=== PATIENT | female | born 1940 | race African-American/Black ===

== ENCOUNTER 2016-05-04 23:44 | Inpatient (IN) | payer MEDICARE, MEDICAID ==
[~2016-05-04] VITALS: Ht 157.5 cm; Wt 54.9 kg
[2016-05-05] VITALS (8 sets, daily range): BP systolic 108–141; BP diastolic 63–76
[2016-05-05] MEDS ORDERED: Famotidine 20 MG/ 2ML VIAL IVP ONE (00:15)
[2016-05-05] MEDS ORDERED: Unasyn 3gm Inj ONE (00:50)
[2016-05-05 00:57] LABS: BASOPHILS % (AUTO) 1.7 % (0.0-2.0); EOSINOPHILS % (AUTO) 0.2 % (0.0-3.0); LYMPHOCYTES % (AUTO) 10.2 % (20.0-45.0); MEAN CORPUSCULAR HEMOGLOBIN 27.8 PG (27.0-31.0); MEAN CORPUSCULAR HGB CONC 32.6 G/DL (32.0-36.0); MEAN CORPUSCULAR VOLUME 85 FL (80-99); NEUTROPHILS % (AUTO) 80.8 % (45.0-75.0); PLATELET COUNT 171 K/UL (150-450); RED BLOOD COUNT 3.83 M/UL (4.20-5.40); WHITE BLOOD COUNT 10.3 K/UL (4.8-10.8)
[2016-05-05 01:09] LABS: INR 1.1 (0.9-1.1); PROTHROMBIN TIME 11.3 SEC (9.30-11.50)
[2016-05-05 01:17] LABS: ALANINE AMINOTRANSFERASE 36 U/L (3-33); ANION GAP 17 (5-15); ASPARTATE AMINO TRANSFERASE 36 U/L (5-40); CALCIUM 9.1 mg/dL (8.6-10.2); CARBON DIOXIDE 14 mEQ/L (20-30); CHLORIDE 106 mEQ/L (98-107); CREATININE 2.1 mg/dL (0.5-0.9); HEMOLYSIS 35; SODIUM 137 mEQ/L (135-145); TOTAL PROTEIN 6.8 g/dL (6.6-8.7)
[2016-05-05 01:28] LABS: POTASSIUM 6.2 mEQ/L (3.4-4.9)
[2016-05-05 01:37] LABS: TROPONIN I < 0.30 ng/mL (<=0.30)
[2016-05-05] MEDS ORDERED: Sodium Polystyrene Sulfonate 15gm Powder ORAL ONE ×2 (01:45→08:00)
[2016-05-05] MEDS ORDERED: Albuterol ud Inhalation HHN ONE (01:45)
[2016-05-05 02:02] LABS: APPEARANCE,URINE CLEAR; KETONES,URINE NEGATIVE (NEGATIVE); LEUKOCYTE ESTERASE ,URINE NEGATIVE (NEGATIVE); NITRITE,URINE NEGATIVE (NEGATIVE); PH,URINE 5 (4.5-8.0); PROTEIN,URINE 2+ (NEGATIVE); UROBILINOGEN,URINE NORMAL MG/DL (0.0-1.0)
[2016-05-05 02:11] LABS: BACTERIA,URINE FEW /HPF; SQUAMOUS EPITHELIAL CELL,UR FEW /LPF (NONE/OCC); WBC,URINE 0-2 /HPF (0 - 2)
[2016-05-05] MEDS: Ampicillin/Sulbactam Sod 3 GM in NS 110 ML IV SCH ×2 (02:16→06:00)
[2016-05-05 02:37] LABS: ABG BASE EXCESS -7.9; ABG PCO2 27.7 mmHg (35.0-45.0)
[2016-05-05 02:38] LABS: ABG ALLEN TEST POSITIVE
[2016-05-05] MEDS ORDERED: UNOBMED (03:16)
[2016-05-05] MEDS ORDERED: Morphine Sulfate 2mg/ml Inj IVP PRN (07:00)
[2016-05-05] MEDS ORDERED: Mylanta II UD 30ml ORAL PRN (07:00)
[2016-05-05] MEDS ORDERED: Miralax 17gm pkt ORAL PRN (07:00)
[2016-05-05] MEDS ORDERED: Zolpidem 5mg tab ORAL PRN (07:00)
[2016-05-05] MEDS ORDERED: DuoNeb 0.5-3(2.5)mg/3ml neb HHN PRN (07:00)
[2016-05-05] MEDS ORDERED: Calcium Gluconate 1gm/10ml vial IVP ONE (08:00)
--- NOTE | 2016-05-05 08:17 | Emergency Room Report ---
History of Present Illness General Chief Complaint: Dyspnea/Respdistress Source: Patient, Medical Record, EMS Present Illness HPI Patient is a 74-year-old female brought in by embolus after increased difficulty breathing. Patient had prior history of congestive heart failure as well as COPD and coronary artery disease. Patient had increased shortness of breath. She was noted to have a syncopal episode at home. Patient was previously scheduled to have a cardiac catheterization at [facility]. Patient had not been any fever. She had slight increase in cough. She had been started on supplemental oxygen by paramedics. Allergies: Coded Allergies: No Known Allergies (Unverified , 05/04/16) Patient History Past Medical History: see triage record Reviewed Nursing Documentation: PMH: Agreed, PSxH: Agreed Nursing Documentation-PMH Hx Cardiac Problems: Yes - stent, Left Chest Pacemaker Hx Hypertension: Yes Hx COPD: Yes Hx Diabetes: Yes Hx Cancer: No Hx Gastrointestinal Problems: No Hx Neurological Problems: Yes - spinal stenosis Hx Vertigo: Yes Review of Systems All Other Systems: negative except mentioned in HPI Physical Exam Vital Signs Date Time Temp Pulse Resp B/P Pulse Ox O2 Delivery O2 Flow Rate FiO2 05/04/16 23:52 98.8 94 18 127/80 86 Simple Mask 6.0 05/05/16 00:40 60 General Appearance: alert, GCS 15, moderate distress ENT: hearing grossly normal, normal pharynx Neck: supple Respiratory: accessory muscle use, rales Cardiovascular #1: normal inspection, normal peripheral pulses, regular rate, rhythm, no edema Gastrointestinal: normal inspection, normal bowel sounds, non tender, soft, no mass Musculoskeletal: normal inspection, back normal Neurologic: normal inspection, alert, oriented x3, 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 Because of complexity of patient' s case laboratory testing and imaging studies were ordered. The patient started on BiPAP. The patient was given IV Lasix. The patient was noted to have a prior history of cardiac ischemia. I EKG interpreted by me showed normal sinus rhythm with a rate of 95 liver inferior ischemic changes noted incomplete bundle-branch block. Dr. zayas was contacted for inpatient management. Labs Test 05/05/16 00:30 05/05/16 01:47 05/05/16 02:30 White Blood Count 10.3 K/UL (4.8-10.8) Red Blood Count 3.83 M/UL (4.20-5.40) Hemoglobin 10.6 G/DL (12.0-16.0) Hematocrit 32.6 % (37.0-47.0) Mean Corpuscular Volume 85 FL (80-99) Mean Corpuscular Hemoglobin 27.8 PG (27.0-31.0) Mean Corpuscular Hemoglobin Concent 32.6 G/DL (32.0-36.0) Red Cell Distribution Width 16.0 % (11.6-14.8) Platelet Count 171 K/UL (150-450) Mean Platelet Volume 8.0 FL (6.5-10.1) Neutrophils (%) (Auto) 80.8 % (45.0-75.0) Lymphocytes (%) (Auto) 10.2 % (20.0-45.0) Monocytes (%) (Auto) 7.0 % (1.0-10.0) Eosinophils (%) (Auto) 0.2 % (0.0-3.0) Basophils (%) (Auto) 1.7 % (0.0-2.0) Prothrombin Time 11.3 SEC (9.30-11.50) Prothromb Time International Ratio 1.1 (0.9-1.1) Activated Partial Thromboplast Time 27 SEC (23-33) Sodium Level 137 mEQ/L (135-145) Potassium Level 6.2 mEQ/L (3.4-4.9) Chloride Level 106 mEQ/L (98-107) Carbon Dioxide Level 14 mEQ/L (20-30) Anion Gap 17 (5-15) Blood Urea Nitrogen 46 mg/dL (7-23) Creatinine 2.1 mg/dL (0.5-0.9) Estimat Glomerular Filtration Rate mL/min (>60) Glucose Level 378 mg/dL (74-106) Lactic Acid Level 1.10 mmol/L (0.66-2.22) Calcium Level 9.1 mg/dL (8.6-10.2) Total Bilirubin 0.4 mg/dL (0.0-1.2) Aspartate Amino Transf (AST/SGOT) 36 U/L (5-40) Alanine Aminotransferase (ALT/SGPT) 36 U/L (3-33) Alkaline Phosphatase 197 U/L (35-104) Total Creatine Kinase 113 U/L (26-140) Troponin I < 0.30 ng/mL (<=0.30) Pro-B-Type Natriuretic Peptide 84385 pg/mL (0-450) Total Protein 6.8 g/dL (6.6-8.7) Albumin 3.4 g/dL (3.5-5.2) Globulin 3.4 g/dL Albumin/Globulin Ratio 1.0 (1.0-2.7) Urine Color Pale yellow Urine Appearance Clear Urine pH 5 (4.5-8.0) Urine Specific [place] 1.015 (1.005-1.035) Urine Protein 2+ (NEGATIVE) Urine Glucose (UA) 3+ (NEGATIVE) Urine Ketones Negative (NEGATIVE) Urine Occult Blood 2+ (NEGATIVE) Urine Nitrite Negative (NEGATIVE) Urine Bilirubin Negative (NEGATIVE) Urine Urobilinogen Normal MG/DL (0.0-1.0) Urine Leukocyte Esterase Negative (NEGATIVE) Urine RBC 2-4 /HPF (0 - 2) Urine WBC 0-2 /HPF (0 - 2) Urine Squamous Epithelial Cells Few /LPF (NONE/OCC) Urine Bacteria Few /HPF (NONE) Arterial Blood pH 7.379 (7.350-7.450) Arterial Blood Partial Pressure CO2 27.7 mmHg (35.0-45.0) Arterial Blood Partial Pressure O2 69.9 mmHg (75.0-100.0) Arterial Blood HCO3 16.0 mmol/L (22.0-26.0) Arterial Blood Oxygen Saturation 92.7 % (92.0-98.0) Arterial Blood Base Excess -7.9 Gibran Test Positive EKG Diagnostic Results Rate: normal Rhythm: NSR - 95 ST Segments: no acute changes Rhythm Strip Diag. Results EP Interpretation: yes Rhythm: NSR - 90s, no PVC's, no ectopy Chest X-Ray Diagnostic Results EP Interpretation: Yes Findings: no pneumothorax, other - Pulmonary edema, cardiomegaly right effusion Number of Views: 1 Last Vital Signs Date Time Temp Pulse Resp B/P Pulse Ox O2 Delivery O2 Flow Rate FiO2 1/31/17 05:08 95 20 96 Facial 50 05/05/16 04:00 97.7 141/76 05/04/16 23:52 6.0 Status: unchanged Disposition: ADMITTED INPATIENT Condition: Serious Referrals: NOT CHOSEN IPA/,REFERRING (PCP) Nathan Rodrigez May 05, 2016 08:17
[2016-05-05] MEDS ORDERED: Heparin 5000 units/ml inj SUBQ SCH (09:00)
[2016-05-05] MEDS ORDERED: Promethazine/Codeine 5ml UD ORAL PRN (10:45)
--- NOTE | 2016-05-05 10:53 | History and Physical ---
History of Present Illness General Date patient seen: May 05, 2016 Reason for Hospitalization: Dyspnea/Respdistress Present Illness HPI 74-year-old female with hx of COPD, on home O2, CAD, renal insufficiency brought in by paramedics after increased difficulty breathing. Patient had increased shortness of breath. She was noted to have a syncopal episode at home. she has also episodes of hemoptysis in the last few days with episodes of fever and chills. Allergies: Coded Allergies: No Known Allergies (Unverified , 05/04/16) Medication History Miscellaneous Medications Unable to Obtain Medications (Unable To Obtain Meds), (Reported) Patient History Healthcare decision maker Resuscitation status Advanced Directive on File Past Medical/Surgical History Past Medical/Surgical History: (1) CAD (coronary artery disease) (2) CHF (congestive heart failure) Review of Systems Constitutional: Reports: weakness Respiratory: Reports: shortness of breath, sputum Physical Exam General Appearance: WD/WN Lines, tubes and drains: peripheral HEENT: normocephalic, atraumatic Neck: non-tender, normal alignment Respiratory/Chest: chest wall non-tender, lungs clear Cardiovascular/Chest: normal peripheral pulses, normal rate Abdomen: normal bowel sounds, non tender Genitourinary/Rectal: normal genital exam, heme negative stool Extremities: normal range of motion Last 24 Hour Vital Signs Date Time Temp Pulse Resp B/P Pulse Ox O2 Delivery O2 Flow Rate FiO2 05/05/16 08:35 50 05/05/16 08:00 90 05/05/16 08:00 97.7 90 20 108/71 95 Venturi Mask 50 05/05/16 07:00 88 20 83 05/05/16 05:08 95 20 96 Facial 50 05/05/16 04:00 97.7 97 27 141/76 97 Bi-pap 50 05/05/16 04:00 50 05/05/16 03:49 89 05/05/16 03:30 98.6 89 25 125/72 100 70 05/05/16 03:28 98.5 92 28 120/69 99 Bi-pap 70 05/05/16 03:13 100 28 99 Facial 70 05/05/16 02:53 84 23 99 Bi-pap 05/05/16 02:43 70 05/05/16 02:30 98.5 92 22 120/69 100 Bi-pap 70 05/05/16 02:30 87 21 99 Bi-pap 60 05/05/16 01:00 98.6 83 30 118/66 100 60 05/05/16 01:00 60 05/05/16 01:00 83 26 Bi-pap 60 05/05/16 00:40 94 28 94 Facial 60 05/04/16 23:52 98.8 94 18 127/80 86 Simple Mask 6.0 Intake and Output 05/04/16 05/05/16 19:00 07:00 Output Total 0 ml Balance 0 ml Output Urine Total 0 ml # Voids 1 Laboratory Tests Test 05/05/16 00:30 05/05/16 01:47 05/05/16 02:30 White Blood Count 10.3 K/UL (4.8-10.8) Red Blood Count 3.83 M/UL (4.20-5.40) L Hemoglobin 10.6 G/DL (12.0-16.0) L Hematocrit 32.6 % (37.0-47.0) L Mean Corpuscular Volume 85 FL (80-99) Mean Corpuscular Hemoglobin 27.8 PG (27.0-31.0) Mean Corpuscular Hemoglobin Concent 32.6 G/DL (32.0-36.0) Red Cell Distribution Width 16.0 % (11.6-14.8) H Platelet Count 171 K/UL (150-450) Mean Platelet Volume 8.0 FL (6.5-10.1) Neutrophils (%) (Auto) 80.8 % (45.0-75.0) H Lymphocytes (%) (Auto) 10.2 % (20.0-45.0) L Monocytes (%) (Auto) 7.0 % (1.0-10.0) Eosinophils (%) (Auto) 0.2 % (0.0-3.0) Basophils (%) (Auto) 1.7 % (0.0-2.0) Prothrombin Time 11.3 SEC (9.30-11.50) Prothromb Time International Ratio 1.1 (0.9-1.1) Activated Partial Thromboplast Time 27 SEC (23-33) Sodium Level 137 mEQ/L (135-145) Potassium Level 6.2 mEQ/L (3.4-4.9) *H Chloride Level 106 mEQ/L (98-107) Carbon Dioxide Level 14 mEQ/L (20-30) L Anion Gap 17 (5-15) H Blood Urea Nitrogen 46 mg/dL (7-23) H Creatinine 2.1 mg/dL (0.5-0.9) H Estimat Glomerular Filtration Rate mL/min (>60) Glucose Level 378 mg/dL (74-106) H Lactic Acid Level 1.10 mmol/L (0.66-2.22) Calcium Level 9.1 mg/dL (8.6-10.2) Total Bilirubin 0.4 mg/dL (0.0-1.2) Aspartate Amino Transf (AST/SGOT) 36 U/L (5-40) Alanine Aminotransferase (ALT/SGPT) 36 U/L (3-33) H Alkaline Phosphatase 197 U/L (35-104) H Total Creatine Kinase 113 U/L (26-140) Creatine Kinase MB Pending Troponin I < 0.30 ng/mL (<=0.30) Pro-B-Type Natriuretic Peptide 66376 pg/mL (0-450) H Total Protein 6.8 g/dL (6.6-8.7) Albumin 3.4 g/dL (3.5-5.2) L Globulin 3.4 g/dL Albumin/Globulin Ratio 1.0 (1.0-2.7) Urine Color Pale yellow Urine Appearance Clear Urine pH 5 (4.5-8.0) Urine Specific [place] 1.015 (1.005-1.035) Urine Protein 2+ (NEGATIVE) H Urine Glucose (UA) 3+ (NEGATIVE) H Urine Ketones Negative (NEGATIVE) Urine Occult Blood 2+ (NEGATIVE) H Urine Nitrite Negative (NEGATIVE) Urine Bilirubin Negative (NEGATIVE) Urine Urobilinogen Normal MG/DL (0.0-1.0) Urine Leukocyte Esterase Negative (NEGATIVE) Urine RBC 2-4 /HPF (0 - 2) H Urine WBC 0-2 /HPF (0 - 2) Urine Squamous Epithelial Cells Few /LPF (NONE/OCC) Urine Bacteria Few /HPF (NONE) Arterial Blood pH 7.379 (7.350-7.450) Arterial Blood Partial Pressure CO2 27.7 mmHg (35.0-45.0) L Arterial Blood Partial Pressure O2 69.9 mmHg (75.0-100.0) L Arterial Blood HCO3 16.0 mmol/L (22.0-26.0) L Arterial Blood Oxygen Saturation 92.7 % (92.0-98.0) Arterial Blood Base Excess -7.9 Gibran Test Positive Height (Feet): 5 Height (Inches): 2.00 Weight (Pounds): 121 Medications Current Medications Medications (Trade) Dose Ordered Sig/[place] Route PRN Reason Start Time Stop Time Status Last Admin Dose Admin Acetaminophen (Tylenol) 650 mg Q4H PRN ORAL fever 05/05/16 07:00 06/04/16 06:59 Al Hydroxide/Mg Hydroxide (Mylanta II) 30 ml Q6H PRN ORAL dyspepsia 05/05/16 07:00 06/04/16 06:59 Albuterol/ Ipratropium (DuoNeb 0.5-3(2.5)mg/3ml) 3 ml Q6H PRN HHN dyspnea 05/05/16 07:00 05/10/16 06:59 Clonidine HCl (Catapres) 0.1 mg Q4H PRN ORAL sbp more than 160 05/05/16 07:00 06/04/16 06:59 Dextrose (Dextrose 50%) STAT PRN IV Hypoglycemia 05/05/16 07:00 06/04/16 06:59 Heparin Sodium (Porcine) (Heparin 5000 units/ml) 5,000 units EVERY 12 HOURS SUBQ 05/05/16 09:00 06/04/16 08:59 05/05/16 10:09 Insulin Aspart (NovoLOG) BEFORE MEALS AND HS SUBQ 05/05/16 11:30 06/04/16 11:29 Morphine Sulfate (Morphine Sulfate) 1 mg Q4H PRN IVP For Pain 05/05/16 07:00 05/12/16 06:59 Ondansetron HCl (Zofran) 4 mg Q6H PRN IVP Nausea & Vomiting 05/05/16 07:00 06/04/16 06:59 Polyethylene Glycol (Miralax) 17 gm HSPRN PRN ORAL Constipation 05/05/16 07:00 06/04/16 06:59 Zolpidem Tartrate (Ambien) 5 mg HSPRN PRN ORAL Insomnia 05/05/16 07:00 06/04/16 06:59 Assessment/Plan Problem List: (1) Respiratory distress ICD Codes: R06.00 - Dyspnea, unspecified SNOMED: 972394721 (2) Hemoptysis ICD Codes: R04.2 - Hemoptysis SNOMED: 83368322 (3) Pulmonary edema ICD Codes: J81.1 - Chronic pulmonary edema SNOMED: 32051891 (4) ICD (implantable cardioverter-defibrillator) in place ICD Codes: Z95.810 - Presence of automatic (implantable) cardiac defibrillator SNOMED: 906583382, 357415681 (5) On home O2 ICD Codes: Z99.81 - Dependence on supplemental oxygen SNOMED: 958102287265 (6) Emphysema of lung ICD Codes: J43.9 - Emphysema, unspecified SNOMED: 97673576 (7) CAD (coronary artery disease) ICD Codes: I25.10 - Atherosclerotic heart disease of [place] coronary artery without angina pectoris SNOMED: 81588246 Assessment/Plan check sputum IV antibioitcs CT chest echo cardiology evaluation renal evaluation titrate fio2 lasix prn dvt prophylaxis with ICD b/o hemoptysis SHELLEY BELCHER May 05, 2016 10:52
[2016-05-05 11:12] LABS: BASOPHILS % (AUTO) 0.8 % (0.0-2.0); EOSINOPHILS % (AUTO) 0.9 % (0.0-3.0); MEAN CORPUSCULAR HEMOGLOBIN 28.1 PG (27.0-31.0); MEAN CORPUSCULAR HGB CONC 33.4 G/DL (32.0-36.0); MEAN CORPUSCULAR VOLUME 84 FL (80-99); MEAN PLATELET VOLUME 8.1 FL (6.5-10.1); MONOCYTES % (AUTO) 3.3 % (1.0-10.0); PLATELET COUNT 165 K/UL (150-450); RED BLOOD COUNT 3.76 M/UL (4.20-5.40); RED CELL DISTRIBUTION WIDTH 16.4 % (11.6-14.8); WHITE BLOOD COUNT 8.2 K/UL (4.8-10.8)
[2016-05-05 11:27] LABS: ANION GAP 20 (5-15); CALCIUM 9.2 mg/dL (8.6-10.2); CARBON DIOXIDE 16 mEQ/L (20-30); CHLORIDE 105 mEQ/L (98-107); CREATININE 1.9 mg/dL (0.5-0.9); HEMOLYSIS 0; POTASSIUM 4.6 mEQ/L (3.4-4.9); SODIUM 141 mEQ/L (135-145)
[2016-05-05] MEDS: NovoLOG Insulin Flexpen SUBQ SCH ×3 (11:39→20:29)
--- NOTE | 2016-05-05 12:01 | Diagnostic Imaging Report ---
Indication: SOB Technique: One view of the chest Comparison: none Findings: There is interstitial and alveolar parenchymal disease bilaterally, right greater than left. There is bilateral pleural fluid, right greater than left. The heart is mildly enlarged. There is a left chest bifocal AICD.. There are median sternotomy sutures Impression: Cardiomegaly Bilateral pulmonary parenchymal disease, likely pulmonary edema although could represent pneumonia Small bilateral pleural effusions, right greater than left This agrees with the preliminary interpretation provided by the emergency room physician
--- NOTE | 2016-05-05 12:21 | Consultation ---
Consult Note Consult Note ID Dic# [id number] MARCELLO SEBASTIAN M.D. May 05, 2016 12:21
--- NOTE | 2016-05-05 14:28 | Cardiology Progress Note ---
Assessment/Plan Assessment/Plan cruscendo angina probable chf mr cad renl insuf iodine allergy dm copd hs hemoptysis? ecotirn avoid heparin in light of hemoptysis i am not sure how much blood she had and may be thsi was related to chf statin consider stanfer to k[place] for cath and pci as indicated need pretreatment fo iodine allergy repeat cardiac enzyms and ekg Objective Last 24 Hour Vital Signs Date Time Temp Pulse Resp B/P Pulse Ox O2 Delivery O2 Flow Rate FiO2 05/05/16 12:27 12.0 50 05/05/16 12:00 98.1 112 22 124/71 82 Venturi Mask 50 05/05/16 08:35 50 05/05/16 08:00 90 05/05/16 08:00 97.7 90 20 108/71 95 Venturi Mask 50 05/05/16 07:00 88 20 83 05/05/16 05:08 95 20 96 Facial 50 05/05/16 04:00 97.7 97 27 141/76 97 Bi-pap 50 05/05/16 04:00 50 05/05/16 03:49 89 05/05/16 03:30 98.6 89 25 125/72 100 70 05/05/16 03:28 98.5 92 28 120/69 99 Bi-pap 70 05/05/16 03:13 100 28 99 Facial 70 05/05/16 02:53 84 23 99 Bi-pap 05/05/16 02:43 70 05/05/16 02:30 98.5 92 22 120/69 100 Bi-pap 70 05/05/16 02:30 87 21 99 Bi-pap 60 05/05/16 01:00 98.6 83 30 118/66 100 60 05/05/16 01:00 60 05/05/16 01:00 83 26 Bi-pap 60 05/05/16 00:40 94 28 94 Facial 60 05/04/16 23:52 98.8 94 18 127/80 86 Simple Mask 6.0 Intake and Output 05/04/16 05/05/16 19:00 07:00 Output Total 0 ml Balance 0 ml Output Urine Total 0 ml # Voids 1 Laboratory Tests Test 05/05/16 00:30 05/05/16 01:47 05/05/16 02:30 05/05/16 10:50 White Blood Count 10.3 K/UL (4.8-10.8) 8.2 K/UL (4.8-10.8) Red Blood Count 3.83 M/UL (4.20-5.40) L 3.76 M/UL (4.20-5.40) L Hemoglobin 10.6 G/DL (12.0-16.0) L 10.6 G/DL (12.0-16.0) L Hematocrit 32.6 % (37.0-47.0) L 31.6 % (37.0-47.0) L Mean Corpuscular Volume 85 FL (80-99) 84 FL (80-99) Mean Corpuscular Hemoglobin 27.8 PG (27.0-31.0) 28.1 PG (27.0-31.0) Mean Corpuscular Hemoglobin Concent 32.6 G/DL (32.0-36.0) 33.4 G/DL (32.0-36.0) Red Cell Distribution Width 16.0 % (11.6-14.8) H 16.4 % (11.6-14.8) H Platelet Count 171 K/UL (150-450) 165 K/UL (150-450) Mean Platelet Volume 8.0 FL (6.5-10.1) 8.1 FL (6.5-10.1) Neutrophils (%) (Auto) 80.8 % (45.0-75.0) H 84.0 % (45.0-75.0) H Lymphocytes (%) (Auto) 10.2 % (20.0-45.0) L 11.0 % (20.0-45.0) L Monocytes (%) (Auto) 7.0 % (1.0-10.0) 3.3 % (1.0-10.0) Eosinophils (%) (Auto) 0.2 % (0.0-3.0) 0.9 % (0.0-3.0) Basophils (%) (Auto) 1.7 % (0.0-2.0) 0.8 % (0.0-2.0) Prothrombin Time 11.3 SEC (9.30-11.50) Prothromb Time International Ratio 1.1 (0.9-1.1) Activated Partial Thromboplast Time 27 SEC (23-33) Sodium Level 137 mEQ/L (135-145) 141 mEQ/L (135-145) Potassium Level 6.2 mEQ/L (3.4-4.9) *H 4.6 mEQ/L (3.4-4.9) Chloride Level 106 mEQ/L (98-107) 105 mEQ/L (98-107) Carbon Dioxide Level 14 mEQ/L (20-30) L 16 mEQ/L (20-30) L Anion Gap 17 (5-15) H 20 (5-15) H Blood Urea Nitrogen 46 mg/dL (7-23) H 46 mg/dL (7-23) H Creatinine 2.1 mg/dL (0.5-0.9) H 1.9 mg/dL (0.5-0.9) H Estimat Glomerular Filtration Rate mL/min (>60) mL/min (>60) Glucose Level 378 mg/dL (74-106) H 377 mg/dL (74-106) H Lactic Acid Level 1.10 mmol/L (0.66-2.22) Calcium Level 9.1 mg/dL (8.6-10.2) 9.2 mg/dL (8.6-10.2) Total Bilirubin 0.4 mg/dL (0.0-1.2) Aspartate Amino Transf (AST/SGOT) 36 U/L (5-40) Alanine Aminotransferase (ALT/SGPT) 36 U/L (3-33) H Alkaline Phosphatase 197 U/L (35-104) H Total Creatine Kinase 113 U/L (26-140) Creatine Kinase MB Pending Troponin I < 0.30 ng/mL (<=0.30) Pro-B-Type Natriuretic Peptide 34525 pg/mL (0-450) H Total Protein 6.8 g/dL (6.6-8.7) Albumin 3.4 g/dL (3.5-5.2) L Globulin 3.4 g/dL Albumin/Globulin Ratio 1.0 (1.0-2.7) Urine Color Pale yellow Urine Appearance Clear Urine pH 5 (4.5-8.0) Urine Specific [place] 1.015 (1.005-1.035) Urine Protein 2+ (NEGATIVE) H Urine Glucose (UA) 3+ (NEGATIVE) H Urine Ketones Negative (NEGATIVE) Urine Occult Blood 2+ (NEGATIVE) H Urine Nitrite Negative (NEGATIVE) Urine Bilirubin Negative (NEGATIVE) Urine Urobilinogen Normal MG/DL (0.0-1.0) Urine Leukocyte Esterase Negative (NEGATIVE) Urine RBC 2-4 /HPF (0 - 2) H Urine WBC 0-2 /HPF (0 - 2) Urine Squamous Epithelial Cells Few /LPF (NONE/OCC) Urine Bacteria Few /HPF (NONE) Arterial Blood pH 7.379 (7.350-7.450) Arterial Blood Partial Pressure CO2 27.7 mmHg (35.0-45.0) L Arterial Blood Partial Pressure O2 69.9 mmHg (75.0-100.0) L Arterial Blood HCO3 16.0 mmol/L (22.0-26.0) L Arterial Blood Oxygen Saturation 92.7 % (92.0-98.0) Arterial Blood Base Excess -7.9 Gibran Test Positive CANDY PRYOR May 05, 2016 14:28
[2016-05-05] MEDS ORDERED: Nitroglycerin 2% oint pkt TOPIC SCH (14:45)
[2016-05-05] MEDS ORDERED: Aspirin EC 81mg tab ORAL SCH (15:00)
[2016-05-05 17:08] LABS: TROPONIN I < 0.30 ng/mL (<=0.30)
--- NOTE | 2016-05-05 20:07 | Consultation ---
DATE OF CONSULTATION: INFECTIOUS DISEASE CONSULTATION CONSULTING PHYSICIAN: Willie Chan M.D. REFERRING PHYSICIAN: Simon Santoyo M.D. REASON FOR CONSULTATION: Evaluation of the patient for pneumonia, bronchitis and antibiotic management. HISTORY OF PRESENT ILLNESS: The patient is a 76-year-old female with multiple medical problems, as , who came to the hospital with chief complaint of cough that is productive for five days. The patient also noticed some blood mixed with the sputum. The patient has reported that in the past also when she gets bronchitis and cough is mixed with blood. Infectious Disease consultation has been requested for further evaluation of the patient's antibiotic management. PAST MEDICAL HISTORY: Significant for 1. stenosis. 2. History of pacemaker placement. 3. History of CHF. 4. Hypertension. 5. COPD. 6. Diabetes. MEDICATIONS: Levaquin. ALLERGIES: No known drug allergies. SOCIAL HISTORY: Significant for smoking. FAMILY HISTORY: Noncontributory. REVIEW OF SYSTEMS: General: The patient has history of weight loss in the last one year. No chills. Pulmonary: As mentioned above. Cardiovascular: No chest pain. No palpitation. Gastrointestinal/Abdomen: No nausea or vomiting. Genitourinary: No dysuria. Musculoskeletal: No pain in extremities. PHYSICAL EXAMINATION: VITAL SIGNS: Temperature 97.6 degrees, blood pressure 108/79, pulse 86, and respiratory rate 18. HEENT: Mild conjunctiva. No icterus. NECK: No lymphadenopathy. CHEST: Coarse breathing sounds. HEART: S1 and S2. ABDOMEN: Soft and nontender. EXTREMITIES: No cyanosis. NEUROLOGIC: Awake and alert. LABORATORY AND DIAGNOSTIC DATA: White blood cells 8, hemoglobin 10, and platelets 165,000. Urinalysis unremarkable. BUN 46 and creatinine 1.9. AST 36, ALT 36, and alkaline phosphatase of 197. A chest x-ray, bilateral pleural parenchymal disease, pleural edema versus pneumonia and small bilateral pleural effusion. ASSESSMENT: The patient is an 76-year-old female with multiple medical problems who was admitted to this medical center. The patient has cough and severe shortness of breath and some hemoptysis in the last five days. Chest x-ray shows evidence of pneumonia or pulmonary edema. Infectious Disease consultation requested for further evaluation of the patient. PLAN: 1. I will start the patient on Levaquin. 2. Monitor CBC. 3. Monitor BMP. 4. Monitor chest x-ray. 5. Monitor cultures (blood and sputum). Based on patient's clinical and laboratories, we will do further recommendation. Thank you, Dr. Santoyo, for allowing me to participate in the care of this patient. I will follow the patient with you during this hospitalization. Willie Chan M.D. DR: CHRISTELLE JOB#: [id number] CC:
[2016-05-05] MEDS: Nitroglycerin 2% oint pkt TOPIC SCH (20:30)
[2016-05-05] MEDS ORDERED: Furosemide 80mg tab ORAL SCH (21:00)
[2016-05-06] VITALS: BP 123/77
[2016-05-06 00:01] LABS: TROPONIN I < 0.30 ng/mL (<=0.30)
[2016-05-06] MEDS: Nitroglycerin 2% oint pkt TOPIC SCH (03:25)
[2016-05-06 04:00] VITALS: BP 131/82
[2016-05-06] MEDS ORDERED: Morphine Sulfate 2mg/ml Inj IVP PRN (06:00)
[2016-05-06] MEDS ORDERED: Mylanta II UD 30ml ORAL PRN (06:00)
[2016-05-06] MEDS ORDERED: Promethazine/Codeine 5ml UD ORAL PRN (06:00)
[2016-05-06] MEDS ORDERED: Zolpidem 5mg tab ORAL PRN (06:00)
[2016-05-06] MEDS ORDERED: Miralax 17gm pkt ORAL PRN (06:00)
[2016-05-06] MEDS ORDERED: DuoNeb 0.5-3(2.5)mg/3ml neb HHN PRN (06:00)
[2016-05-06] MEDS: NovoLOG Insulin Flexpen SUBQ SCH ×2 (07:11→12:20)
[2016-05-06 08:04] VITALS: BP 119/66
[2016-05-06 08:15] LABS: BASOPHILS % (AUTO) 0.7 % (0.0-2.0); EOSINOPHILS % (AUTO) 3.2 % (0.0-3.0); MEAN CORPUSCULAR HEMOGLOBIN 28.6 PG (27.0-31.0); MEAN CORPUSCULAR HGB CONC 34.3 G/DL (32.0-36.0); MEAN CORPUSCULAR VOLUME 84 FL (80-99); MEAN PLATELET VOLUME 8.1 FL (6.5-10.1); MONOCYTES % (AUTO) 7.4 % (1.0-10.0); NEUTROPHILS % (AUTO) 74.7 % (45.0-75.0); PLATELET COUNT 206 K/UL (150-450); RED CELL DISTRIBUTION WIDTH 16.3 % (11.6-14.8); WHITE BLOOD COUNT 6.8 K/UL (4.8-10.8)
[2016-05-06 08:33] LABS: ALANINE AMINOTRANSFERASE 54 U/L (3-33); ALBUMIN/GLOBULIN RATIO 1.3 (1.0-2.7); ANION GAP 20 (5-15); ASPARTATE AMINO TRANSFERASE 43 U/L (5-40); CALCIUM 9.2 mg/dL (8.6-10.2); CARBON DIOXIDE 19 mEQ/L (20-30); CHLORIDE 103 mEQ/L (98-107); CREATININE 1.9 mg/dL (0.5-0.9); HEMOLYSIS 6; POTASSIUM 3.7 mEQ/L (3.4-4.9); SODIUM 142 mEQ/L (135-145); TOTAL PROTEIN 6.6 g/dL (6.6-8.7)
[2016-05-06] MEDS ORDERED: Aspirin EC 81mg tab ORAL SCH (09:00)
[2016-05-06] MEDS ORDERED: Nitroglycerin 2% oint pkt TOPIC SCH (09:00)
[2016-05-06] MEDS ORDERED: Furosemide 80mg tab ORAL SCH (09:00)
[2016-05-06 09:25] LABS: MAGNESIUM 1.8 mg/dL (1.7-2.5)
--- NOTE | 2016-05-06 09:26 | Diagnostic Imaging Report ---
Clinical Indication: COUGH Technique: Spiral acquisitions obtained through the chest. No IV contrast utilized, the renal insufficiency. Multiplanar reconstructions generated. Total dose length product 497 mGycm. CTDIvol(s) 12 mGy Comparison: None Findings:There is dense consolidation and atelectasis of the inferior right lower lobe. Interstitial and alveolar opacities are seen involving much of the remainder the right lower lobe. Within most of the right upper lobe, there is mostly interstitial parenchymal disease diffusely, with some airspace involvement as well. The left upper lobe is clear. There is some compressive atelectasis at the left lung base. Medial opacity with air bronchograms may reflect atelectasis or scarring with cicatrization. There are bilateral pleural effusions, moderate on the right, small on the left. The heart is enlarged. No pericardial effusion. There is a left chest pacemaker. There are median sternotomy sutures. There is edema of the mediastinal fat. There are multiple nodules within the right thyroid lobe and thyroid isthmus, measuring up to 1 cm diameter. No mediastinal or hilar mass or adenopathy. Esophagus is unremarkable. The bones are unremarkable except for the sternotomy sutures. The main pulmonary artery is ectatic. There are fairly extensive coronary artery calcifications The included upper abdominal viscera are unremarkable. There is suggestion of fluid either within the pleural space or retroperitoneum posteromedial to the right hepatic lobe. Impression: Unusual interstitial and alveolar opacity involving the right upper lobe. Probably reflects acute infiltrate, although an unusual focal component of chronic fibrosis is also possible. Correlate with clinical findings Atelectasis and consolidation involving much of the right lower lobe, consistent with pneumonia Bilateral right greater left pleural effusions Ectatic main pulmonary artery, suggestive of but not diagnostic for pulmonary arterial hypertension Multiple thyroid nodules. Further evaluation with ultrasound should be considered if clinically indicated Cardiomegaly Pacemaker Nonspecific edema of the mediastinal fat, mild Suggestion of fluid in the peritoneal space or within the retroperitoneum adjacent to the posterior medial right hepatic lobe The CT scanner at [facility] is accredited by the [employer] and the scans are performed using protocols designed to limit radiation exposure to as low as reasonably achievable to attain images of sufficient resolution adequate for diagnostic evaluation.
[2016-05-06 09:32] LABS: TROPONIN I < 0.30 ng/mL (<=0.30)
--- NOTE | 2016-05-06 10:35 | Infectious Diseases Prog Note ---
Assessment/Plan Assessment/Plan A: The patient is a 76-year-old female with Pneumonia VS Bronchitis hemoptysis ( due to bronchitis and ) and cough improving chest x-ray : bilateral pleural parenchymal disease, pleural edema versus pneumonia and small bilateral pleural effusion PPM CHF HTN COPD Diabetes PLAN: Cont pt on Levaquin d# 2 / 5 Monitor CBC Monitor BMP. Monitor chest x-ray Monitor cultures (blood and sputum) Subjective Allergies: Coded Allergies: No Known Allergies (Unverified , 05/04/16) Objective Vital Signs Last 24 Hour Vital Signs Date Time Temp Pulse Resp B/P Pulse Ox O2 Delivery O2 Flow Rate FiO2 05/06/16 09:11 119/66 05/06/16 08:04 97.9 99 18 119/66 93 Nasal Cannula 2.0 05/06/16 08:00 92 05/06/16 07:19 94 20 91 Nasal Cannula 3.0 32 05/06/16 07:19 96 18 93 Nasal Cannula 3.0 32 05/06/16 04:00 96 05/06/16 04:00 98.6 96 18 131/82 96 Nasal Cannula 2.0 05/06/16 03:40 98 20 92 Nasal Cannula 3.0 32 05/06/16 03:30 94 20 90 Nasal Cannula 3.0 32 05/06/16 03:25 131/82 05/06/16 00:00 95 05/06/16 00:00 99.1 97 19 123/77 96 Nasal Cannula 2.0 05/05/16 23:30 93 20 94 Nasal Cannula 3.0 32 05/05/16 23:29 90 20 91 Nasal Cannula 3.0 32 05/05/16 20:30 111/65 05/05/16 20:09 99.3 93 18 111/65 91 Nasal Cannula 3.0 05/05/16 20:00 94 05/05/16 19:30 92 20 92 Nasal Cannula 3.0 32 05/05/16 19:30 94 20 92 Nasal Cannula 3.0 32 05/05/16 16:15 84 20 99 Venturi Mask 12.0 50 05/05/16 16:00 94 05/05/16 16:00 50 05/05/16 16:00 97.7 99 18 110/63 91 Nasal Cannula 3.0 05/05/16 15:27 85 20 98 Venturi Mask 12.0 50 05/05/16 14:55 124/71 05/05/16 12:27 12.0 50 05/05/16 12:00 98.1 112 22 124/71 82 Venturi Mask 50 Height (Feet): 5 Height (Inches): 2.00 Weight (Pounds): 121 Microbiology Date/Time Source Procedure Growth Status 05/05/16 00:41 Blood Blood Culture - Preliminary NO GROWTH AFTER 24 HOURS Resulted 05/05/16 00:30 Blood Blood Culture - Preliminary NO GROWTH AFTER 24 HOURS Resulted Laboratory Tests Test 05/05/16 10:50 05/05/16 15:00 05/05/16 22:30 05/06/16 06:30 White Blood Count 8.2 K/UL (4.8-10.8) 6.8 K/UL (4.8-10.8) Red Blood Count 3.76 M/UL (4.20-5.40) L 4.00 M/UL (4.20-5.40) L Hemoglobin 10.6 G/DL (12.0-16.0) L 11.5 G/DL (12.0-16.0) L Hematocrit 31.6 % (37.0-47.0) L 33.5 % (37.0-47.0) L Mean Corpuscular Volume 84 FL (80-99) 84 FL (80-99) Mean Corpuscular Hemoglobin 28.1 PG (27.0-31.0) 28.6 PG (27.0-31.0) Mean Corpuscular Hemoglobin Concent 33.4 G/DL (32.0-36.0) 34.3 G/DL (32.0-36.0) Red Cell Distribution Width 16.4 % (11.6-14.8) H 16.3 % (11.6-14.8) H Platelet Count 165 K/UL (150-450) 206 K/UL (150-450) Mean Platelet Volume 8.1 FL (6.5-10.1) 8.1 FL (6.5-10.1) Neutrophils (%) (Auto) 84.0 % (45.0-75.0) H 74.7 % (45.0-75.0) Lymphocytes (%) (Auto) 11.0 % (20.0-45.0) L 14.0 % (20.0-45.0) L Monocytes (%) (Auto) 3.3 % (1.0-10.0) 7.4 % (1.0-10.0) Eosinophils (%) (Auto) 0.9 % (0.0-3.0) 3.2 % (0.0-3.0) H Basophils (%) (Auto) 0.8 % (0.0-2.0) 0.7 % (0.0-2.0) Sodium Level 141 mEQ/L (135-145) 142 mEQ/L (135-145) Potassium Level 4.6 mEQ/L (3.4-4.9) 3.7 mEQ/L (3.4-4.9) Chloride Level 105 mEQ/L (98-107) 103 mEQ/L (98-107) Carbon Dioxide Level 16 mEQ/L (20-30) L 19 mEQ/L (20-30) L Anion Gap 20 (5-15) H 20 (5-15) H Blood Urea Nitrogen 46 mg/dL (7-23) H 42 mg/dL (7-23) H Creatinine 1.9 mg/dL (0.5-0.9) H 1.9 mg/dL (0.5-0.9) H Estimat Glomerular Filtration Rate mL/min (>60) mL/min (>60) Glucose Level 377 mg/dL (74-106) H 167 mg/dL (74-106) #H Calcium Level 9.2 mg/dL (8.6-10.2) 9.2 mg/dL (8.6-10.2) Troponin I < 0.30 ng/mL (<=0.30) < 0.30 ng/mL (<=0.30) < 0.30 ng/mL (<=0.30) Hemoglobin A1c Pending Magnesium Level 1.8 mg/dL (1.7-2.5) Total Bilirubin 0.6 mg/dL (0.0-1.2) Aspartate Amino Transf (AST/SGOT) 43 U/L (5-40) H Alanine Aminotransferase (ALT/SGPT) 54 U/L (3-33) H Alkaline Phosphatase 214 U/L (35-104) H Total Protein 6.6 g/dL (6.6-8.7) Albumin 3.8 g/dL (3.5-5.2) Globulin 2.8 g/dL Albumin/Globulin Ratio 1.3 (1.0-2.7) Triglycerides Level Pending Cholesterol Level Pending LDL Cholesterol Pending HDL Cholesterol Pending Cholesterol/HDL Ratio Pending Thyroid Stimulating Hormone (TSH) Pending Current Medications Medications (Trade) Dose Ordered Sig/Celeste Route PRN Reason Start Time Stop Time Status Last Admin Dose Admin Acetaminophen (Tylenol) 650 mg Q4H PRN ORAL fever 05/06/16 06:00 06/05/16 05:59 Al Hydroxide/Mg Hydroxide (Mylanta II) 30 ml Q6H PRN ORAL dyspepsia 05/06/16 06:00 06/05/16 05:59 Albuterol/ Ipratropium (DuoNeb 0.5-3(2.5)mg/3ml) 3 ml Q6H PRN HHN dyspnea 05/06/16 06:00 05/11/16 05:59 Aspirin (Ecotrin) 81 mg DAILY ORAL 05/06/16 09:00 06/05/16 08:59 05/06/16 09:10 Atorvastatin Calcium (Lipitor) 40 mg BEDTIME ORAL 05/06/16 21:00 06/05/16 20:59 Clonidine HCl (Catapres) 0.1 mg Q4H PRN ORAL sbp more than 160 05/06/16 06:00 06/05/16 05:59 Dextrose (Dextrose 50%) STAT PRN IV Hypoglycemia 05/06/16 06:00 06/05/16 05:59 Furosemide (Lasix) 80 mg EVERY 12 HOURS ORAL 05/06/16 09:00 06/05/16 08:59 05/06/16 09:11 Insulin Aspart (NovoLOG) BEFORE MEALS AND HS SUBQ 05/06/16 06:30 06/05/16 06:29 05/06/16 07:11 Levofloxacin (Levaquin) 100 ml @ 100 mls/hr Q48H IVPB 05/07/16 13:00 05/14/16 12:59 Morphine Sulfate (Morphine Sulfate) 1 mg Q4H PRN IVP For Pain 05/06/16 06:00 05/13/16 05:59 Nitroglycerin (Nitro-Bid) 1 inch Q6H TOPIC 05/06/16 09:00 06/05/16 08:59 05/06/16 09:11 Ondansetron HCl (Zofran) 4 mg Q6H PRN IVP Nausea & Vomiting 05/06/16 06:00 06/05/16 05:59 Polyethylene Glycol (Miralax) 17 gm HSPRN PRN ORAL Constipation 05/06/16 06:00 06/05/16 05:59 Promethazine HCl/ Codeine (Phenergan with Codeine) 5 ml Q4H PRN ORAL For Cough 05/06/16 06:00 06/05/16 05:59 Zolpidem Tartrate (Ambien) 5 mg HSPRN PRN ORAL Insomnia 05/06/16 06:00 06/05/16 05:59 MARCELLO SEBASTIAN M.D. May 06, 2016 10:35
[2016-05-06 11:44] VITALS: BP 126/65
--- NOTE | 2016-05-06 12:49 | Pulmonology Progress Note ---
Assessment/Plan Problems: (1) Respiratory distress (2) Hemoptysis (3) Pulmonary edema (4) ICD (implantable cardioverter-defibrillator) in place (5) On home O2 (6) Emphysema of lung (7) CAD (coronary artery disease) Assessment/Plan unusual infiltrate at RUL on CT ? etiology pt is stable to be transferred to [facility] for cardiac work up Subjective ROS Limited/Unobtainable: No Interval Events: doing better, no new complains Allergies: Coded Allergies: No Known Allergies (Unverified , 05/04/16) Objective Last 24 Hour Vital Signs Date Time Temp Pulse Resp B/P Pulse Ox O2 Delivery O2 Flow Rate FiO2 05/06/16 11:44 98.2 95 18 126/65 92 Nasal Cannula 2.0 05/06/16 10:30 94 16 92 Nasal Cannula 3.0 32 05/06/16 10:30 94 20 91 Nasal Cannula 3.0 32 05/06/16 09:11 119/66 05/06/16 08:04 97.9 99 18 119/66 93 Nasal Cannula 2.0 05/06/16 08:00 92 05/06/16 07:19 94 20 91 Nasal Cannula 3.0 32 05/06/16 07:19 96 18 93 Nasal Cannula 3.0 32 05/06/16 04:00 96 05/06/16 04:00 98.6 96 18 131/82 96 Nasal Cannula 2.0 05/06/16 03:40 98 20 92 Nasal Cannula 3.0 32 05/06/16 03:30 94 20 90 Nasal Cannula 3.0 32 05/06/16 03:25 131/82 05/06/16 00:00 95 05/06/16 00:00 99.1 97 19 123/77 96 Nasal Cannula 2.0 05/05/16 23:30 93 20 94 Nasal Cannula 3.0 32 05/05/16 23:29 90 20 91 Nasal Cannula 3.0 32 05/05/16 20:30 111/65 05/05/16 20:09 99.3 93 18 111/65 91 Nasal Cannula 3.0 05/05/16 20:00 94 05/05/16 19:30 92 20 92 Nasal Cannula 3.0 32 05/05/16 19:30 94 20 92 Nasal Cannula 3.0 32 05/05/16 16:15 84 20 99 Venturi Mask 12.0 50 05/05/16 16:00 94 05/05/16 16:00 50 05/05/16 16:00 97.7 99 18 110/63 91 Nasal Cannula 3.0 05/05/16 15:27 85 20 98 Venturi Mask 12.0 50 05/05/16 14:55 124/71 Intake and Output 05/05/16 05/06/16 19:00 07:00 Intake Total 650 ml 400 ml Balance 650 ml 400 ml Intake Oral 650 ml 400 ml # Voids 1 3 General Appearance: WD/WN HEENT: normocephalic, atraumatic Respiratory/Chest: chest wall non-tender, lungs clear Cardiovascular: normal peripheral pulses, normal rate Abdomen: normal bowel sounds, soft, non tender Genitourinary: normal external genitalia Skin: no lesions Neurologic/Psychiatric: gin operator II-XII grossly normal, abnormal gait Microbiology Date/Time Source Procedure Growth Status 05/05/16 00:41 Blood Blood Culture - Preliminary NO GROWTH AFTER 24 HOURS Resulted 05/05/16 00:30 Blood Blood Culture - Preliminary NO GROWTH AFTER 24 HOURS Resulted Laboratory Tests 05/05/16 15:00: Troponin I < 0.30 05/05/16 22:30: Troponin I < 0.30 05/06/16 06:30: Troponin I < 0.30, White Blood Count 6.8, Red Blood Count 4.00L, Hemoglobin 11.5L, Hematocrit 33.5L, Mean Corpuscular Volume 84, Mean Corpuscular Hemoglobin 28.6, Mean Corpuscular Hemoglobin Concent 34.3, Red Cell Distribution Width 16.3H, Platelet Count 206, Mean Platelet Volume 8.1, Neutrophils (%) (Auto) 74.7, Lymphocytes (%) (Auto) 14.0L, Monocytes (%) (Auto) 7.4, Eosinophils (%) (Auto) 3.2H, Basophils (%) (Auto) 0.7, Sodium Level 142, Potassium Level 3.7, Chloride Level 103, Carbon Dioxide Level 19L, Anion Gap 20H , Blood Urea Nitrogen 42H, Creatinine 1.9H, Estimat Glomerular Filtration Rate , Glucose Level 167#H, Hemoglobin A1c [Pending], Calcium Level 9.2, Magnesium Level 1.8, Total Bilirubin 0.6, Aspartate Amino Transf (AST/SGOT) 43H, Alanine Aminotransferase (ALT/SGPT) 54H, Alkaline Phosphatase 214H, Total Protein 6.6, Albumin 3.8, Globulin 2.8, Albumin/Globulin Ratio 1.3, Triglycerides Level [ Pending], Cholesterol Level [Pending], LDL Cholesterol [Pending], HDL Cholesterol [Pending], Cholesterol/HDL Ratio [Pending], Thyroid Stimulating Hormone (TSH) [Pending] Current Medications Medications (Trade) Dose Ordered Sig/Celeste Route PRN Reason Start Time Stop Time Status Last Admin Dose Admin Acetaminophen (Tylenol) 650 mg Q4H PRN ORAL fever 05/06/16 06:00 06/05/16 05:59 Al Hydroxide/Mg Hydroxide (Mylanta II) 30 ml Q6H PRN ORAL dyspepsia 05/06/16 06:00 06/05/16 05:59 Albuterol/ Ipratropium (DuoNeb 0.5-3(2.5)mg/3ml) 3 ml Q6H PRN HHN dyspnea 05/06/16 06:00 05/11/16 05:59 Aspirin (Ecotrin) 81 mg DAILY ORAL 05/06/16 09:00 06/05/16 08:59 05/06/16 09:10 Atorvastatin Calcium (Lipitor) 40 mg BEDTIME ORAL 05/06/16 21:00 06/05/16 20:59 Clonidine HCl (Catapres) 0.1 mg Q4H PRN ORAL sbp more than 160 05/06/16 06:00 06/05/16 05:59 Dextrose (Dextrose 50%) STAT PRN IV Hypoglycemia 05/06/16 06:00 06/05/16 05:59 Furosemide (Lasix) 80 mg EVERY 12 HOURS ORAL 05/06/16 09:00 06/05/16 08:59 05/06/16 09:11 Insulin Aspart (NovoLOG) BEFORE MEALS AND HS SUBQ 05/06/16 06:30 06/05/16 06:29 05/06/16 12:20 Levofloxacin (Levaquin) 100 ml @ 100 mls/hr Q48H IVPB 05/07/16 13:00 05/14/16 12:59 Morphine Sulfate (Morphine Sulfate) 1 mg Q4H PRN IVP For Pain 05/06/16 06:00 05/13/16 05:59 05/06/16 12:22 Nitroglycerin (Nitro-Bid) 1 inch Q6H TOPIC 05/06/16 09:00 06/05/16 08:59 05/06/16 09:11 Ondansetron HCl (Zofran) 4 mg Q6H PRN IVP Nausea & Vomiting 05/06/16 06:00 06/05/16 05:59 Polyethylene Glycol (Miralax) 17 gm HSPRN PRN ORAL Constipation 05/06/16 06:00 06/05/16 05:59 Promethazine HCl/ Codeine (Phenergan with Codeine) 5 ml Q4H PRN ORAL For Cough 05/06/16 06:00 06/05/16 05:59 Zolpidem Tartrate (Ambien) 5 mg HSPRN PRN ORAL Insomnia 05/06/16 06:00 06/05/16 05:59 SHELLEY BELCHER May 06, 2016 12:49
[2016-05-06 14:12] LABS: CHOLESTEROL/HDL RATIO 3.4 (3.3-4.4)
--- NOTE | 2016-05-06 14:18 | Cardiology Report ---
APPROVED REPORT EKG Measurement Heart [id number] Normal sinus rhythm Anterior infarct, age undetermined Abnormal ECG
--- NOTE | 2016-05-06 14:21 | Cardiology Report ---
APPROVED REPORT EKG Measurement Heart [id number] Unusual P axis, possible ectopic atrial rhythm Incomplete right bundle branch block Septal infarct, age undetermined Abnormal ECG
[2016-05-06 14:36] LABS: CKMB 2.5 ng/mL (< 3.8)
[2016-05-06] MEDS ORDERED: NS 275ml ONE (14:59)
[2016-05-07 07:59] LABS: HEMOGLOBIN A1C 8.5 % (< 6.0)
--- NOTE | 2016-05-07 15:36 | Cardiology Report ---
APPROVED REPORT EXAM: Two-dimensional and M-mode echocardiogram with Doppler and color Doppler. INDICATION Chest Pain M-Mode DIMENSIONS IVSd0.9 (0.7-1.1cm)Left Atrium (MM)5.2 (1.6-4.0cm) LVDd5.6 (3.5-5.6cm)Aortic Root2.1 (2.0-3.7cm) PWd0.8 (0.7-1.1cm)Aortic Cusp Exc.1.5 (1.5-2.0cm) LVDs4.8 (2.5-4.0cm) PWs1.2 cm Normal left ventricular chamber size. Mild global LV hypokinesis. Left ventricular ejection fraction estimated to be 40-45%. No evidence ofleft ventricular hypertrophy. No evidence of pericardial fat or effusion. Moderate-severe bi-atrial enlargement by 2D. Focal aortic valve sclerosis with adequate cusp excursion Thickened mitral valve leaflets with normal excursion. Mitral annulus and aortic root calcification. Pulmonic valve not well visualized. Normal tricuspid valve structure. IVC dilated at 2.6cm with minimal physiologic collapse. RA pressure of 15mmHg. Probable pacemaker wire present in the right side chambers. A color flow and spectral Doppler study was performed and revealed: No aortic regurgitation. Severe mitral regurgitation. Mitral inflow velocities indicates possible pseudo normalization pattern implying significant left ventricular diastolic dysfunction. Moderate tricuspid regurgitation. Tricuspid systolic velocities suggests peak right ventricular systolic pressure of 82mmHg Consistent with severe pulmonary hypertension
--- NOTE | 2016-05-07 16:22 | Discharge Summary ---
Discharge Summary Hospital Course Date of Admission May 05, 2016 at 01:44 Date of Discharge May 06, 2016 at 15:00 Admitting Diagnosis respiratory failure HPI Vonda Pacheco is a 76 year old female who was admitted on May 05, 2016 at 01:44 for Respiratory Failure Hospital Course [id number] Discharge Discharge Disposition Patient was [facility] Discharge Diagnoses: Di Mcnulty NP May 07, 2016 16:22
--- NOTE | 2016-05-08 00:48 | Discharge Summary 2 SIG ---
DATE OF ADMISSION: 05/05/2016 DATE OF DISCHARGE: 05/06/2016 CONSULTANTS: 1. Willie Chan M.D. 2. Charlie Clifton M.D. BRIEF HOSPITAL COURSE: The patient is a 76-year-old female with history of chronic obstructive pulmonary disease and is oxygen dependent at home, history of coronary artery disease, and renal insufficiency, who was brought in by paramedics after increased difficulty with breathing. The patient had increased shortness of breath and was noted to have a syncopal episode at home with reports of hemoptysis for the last few days. At ED, she was placed on BiPAP. Dr. Chan was consulted. The patient had productive cough for five days. Chest x-ray showed evidence of pneumonia or pulmonary edema. She was started on Levaquin. Dr. Clifton was also consulted for evaluation of chest pain and probable congestive heart failure. The patient was given statin and aspirin and will need to undergo cath. She was transferred to [facility] for catheterization and PCI. FINAL DIAGNOSES: 1. Respiratory failure requiring BiPAP, resolved. 2. Pneumonia. 3. Pulmonary edema. 4. Emphysema, on home O2. 5. Implantable cardioverter-defibrillator. 6. Coronary artery disease. 7. Acute bronchitis. 8. Hypertension. 9. Diabetes mellitus. 10. Aortic stenosis. 11. Crescendo angina. 12. Coronary disease. 13. Probable congestive heart failure. 14. Mitral regurgitation. 15. Renal insufficiency. 16. Iodine allergy. 17. Diabetes mellitus. 18. Hyperlipidemia. 19. Questionable brain tumor. Simon Santoyo M.D. I have been assigned to dictate discharge summary on this account and I was not involved in the patient's management. Di Mcnulty N.P. DR: ELLA JOB#: [id number] CC: MINA
--- NOTE | 2016-05-08 13:37 | Consultation ---
DATE OF CONSULTATION: 05/05/2016 CARDIOLOGY CONSULTATION REFERRING PHYSICIAN: Simon Santoyo M.D. REASON FOR REFERRAL: Chest pain. History Of Present Illness: This is an elderly female who has got a history of multiple medical problems as delineated below. The patient apparently has a history of coronary artery disease. She was supposed to have angiogram and angioplasty 00:29 of [facility] today, but the patient's son tells me that yesterday it was a very bad day for her. She was having lot of chest pain, lot of shortness of breath, coughing up lot of blood-tinged sputum and was confused. This lasted approximately 12 hours, and because of the shortness of breath, the patient's son called the paramedics. Saturations were low in the 80s, but was noted to have clear lung sounds bilaterally. She was able to speak in complete sentences and denied chest pain on questioning by the paramedics. She has been coughing a lot of phlegm and sputum. The patient was transferred to the emergency room. Because of the situation, she was placed on oxygen, was transferred, and has been placed on BiPAP therapy and has had significant improvement. She does indicate that she had chest pains intermittently, yesterday tightness and heaviness 01:33 several occasions with improvement, but the pain would recur. She would have shortness of breath on minimal exertion. She sleeps in a sitting position. She does occasionally wake up because of shortness of breath. She does have heartburn and palpitations. She does have dizziness and lightheadedness. PAST MEDICAL HISTORY: Positive for diabetes mellitus and high blood pressure. She has had history of coronary artery disease and history of coronary bypass grafting and no history of cancer, although she has had recent tumor in the brain that was noted but they are going to apparently look into look into that after she has angioplasty. She has COPD, CHF, permanent pacemaker implantation, hypertension, kidney problems, liver problems, thyroid problems, as well as anemia. ALLERGIES: She is allergic to iodine. SOCIAL HISTORY: She does not smoke at the present time, although previously. She has had no alcohol and no drug use. REVIEW OF SYSTEMS: Gastrointestinal: She has had nausea and vomiting yesterday she was ill. Pulmonary: Positive for coughing and sputum production. Constitutional: No fevers or chills. Genitourinary: Negative. Neurological: Negative. PHYSICAL EXAMINATION: GENERAL: Shows to be elderly female, active looking. NECK: Supple. Some nodes are noted in the neck. LUNGS: Crackles noted over the right base with decreased air entry to a degree. CARDIAC: Regular rate and rhythm. Holosystolic regurgitant murmur noted. ABDOMEN: Soft and nontender. Positive bowel sounds. EXTREMITIES: There is no clubbing, cyanosis, or edema. NEUROLOGIC: She is awake, alert, responsive, in no apparent respiratory distress. LABORATORY AND DIAGNOSTIC DATA: White count of 8.2, hemoglobin 10.6, and platelet count of 165,000. PH of 7.38, pCO2 of 28, pO2 of 70, and bicarbonate of 16. Sodium is 141, potassium 4.6, chloride 105, bicarbonate of 16, BUN of 46, and creatinine 1.2. The patient's creatinine was 2.1 earlier in the evening. Troponin less than 0.3. ProBNP is 24,784. Her INR is 1.2. Urinalysis is 3+ glucose, 2+ occult blood, and 2 to 4 RBCs. Chest x-ray read by the radiologist seem to indicate bilateral pulmonary parenchymal disease likely pulmonary edema, although could represent small pleural effusions, right greater than left. The patient's electrocardiogram shows normal sinus rhythm, T-wave inversions noted in I and aVL with ST-segment depression, Q-wave inversion in II, III, and aVF and some possibly in V5 and V6, although difficult to see those because of movement artifact. ASSESSMENT: 1. Crescendo angina. 2. Coronary disease. 3. Probable congestive heart failure. 4. Mitral regurgitation. 5. Renal insufficiency. 6. Iodine allergy. 7. Diabetes mellitus. 8. Hyperlipidemia. 9. Questionable brain tumor. 10. Systemic hypertension. PLAN: Dr. Santoyo, this patient was seen in cardiac consultation. The patient's echocardiogram is concerning because of the changes, although I am not sure about the chronicity of those changes. The patient was on her way to have an angioplasty, which she is likely deemed to get. I will continue the patient on aspirin. Because of the hemoptysis, I am hesitant to start her on anticoagulation, but we will start her on some nitroglycerin paste. Continue her usual medications from home and some beta-blockers if able to. 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 Charlie Clifton M.D. DR: Remedios JOB#: [id number] CC:
== END 2016-05-06 15:00 | disposition short-term general hospital (02) | DRG 189 ==
LOC: EDBD 23:44 → EMR 23:59 → 2W 05-05 01:44 → EDBD 05-05 01:44 → EDBEDREQ 05-05 02:11 → 2E 05-06 06:00
DX: J96.90 Respiratory failure, unspecified, unspecified whether with hypoxia or hypercapnia (principal); I11.0 Hypertensive heart disease with heart failure; I50.9 Heart failure, unspecified; E87.5 Hyperkalemia; I25.10 Atherosclerotic heart disease of native coronary artery without angina pectoris; E11.9 Type 2 diabetes mellitus without complications; J44.9 Chronic obstructive pulmonary disease, unspecified; I08.0 Rheumatic disorders of both mitral and aortic valves; Z95.810 Presence of automatic (implantable) cardiac defibrillator
CPT/HCPCS: 36415; 36600; 71010; 71250; 80048; 80053; 80061; 81003; 82550; 82553; 82803; 82962; 83036; 83605; 83735; 83880; 84443; 84484; 85025; 85610; 85730; 86850; 86870; 86900; 86901; 86904; 87040; 87070; 87081; 87205; 93005; 93306; 94640; J1815